=== PATIENT | male | born 1960 | race Caucasian/White ===

== ENCOUNTER 2017-12-06 08:33 | Outpatient (CLI) | payer MEDICARE, SELFPAY ==
[2017-12-06 13:23] LABS: Anion Gap 7.8 mmol/L (3-11); BUN 20 mg/dL (7-18); CO2 29.2 mmol/L (21.0-32.0); CREATININE 1.07 mg/dL (0.70-1.30); Calcium 8.8 mg/dL (8.5-10.1); Chloride 106 mmol/L (98-107); Cholesterol 152 mg/dL (50-200); Glucose 139 mg/dL (70-100); HDL Cholesterol 31 mg/dL (40-60); LDL CHOLESTEROL 110 mg/dL (<100); Potassium 4.4 mmol/L (3.5-5.1); Sodium 143 mmol/L (136-145); Triglyceride 74 mg/dL (30-150)
== END 2017-12-06 08:53 ==
PROVIDERS: PCP Family Medicine; Visit Provider Family Medicine
DX: E78.5 Hyperlipidemia, unspecified (principal); J45.909 Unspecified asthma, uncomplicated
CPT/HCPCS: 36415; 80048; 80061; 83721

== ENCOUNTER 2018-04-30 09:52 | Emergency (ER) | payer MEDICARE, SELFPAY ==
[2018-04-30 09:57] VITALS: BP 141/96; PULSE 88; RESP 20; TEMP 36.9; O2SAT 96
--- NOTE | 2018-04-30 10:03 | DI.RAD_ITS ---
SYMPTOMS/DIAGNOSIS: COUGH, RIGHT BASE RHONCHI CHEST X-RAY, TWO VIEWS: Comparison is 09/23/11. The heart size and pulmonary vasculature are within normal limits. The lungs are clear. The lungs are slightly hyperinflated. This may be due to underlying COPD or reactive airway disease. No focal infiltrates, effusions or pneumothoraces are identified. Degenerative changes are seen in the spine. IMPRESSION: Stable mild hyperinflation of the lungs. This may be due to deep inspiratory effort, COPD or mild reactive airway disease.
--- NOTE | 2018-04-30 10:06 | ED.GENADUL_ITS ---
Discharge Plan Disposition Patient Disposition: HOME Discharge Details Chief Complaint: RespSymp Clinical Impression: Pneumonitis Primary Care Provider: Shay Pimentel ED Provider: Sudheer Singh Home Meds and New Rx's Prescriptions: New cefdinir 300 mg capsule 300 mg PO Q12H 10 Days Qty: 20 RF: 0 Continued Flovent HFA 110 mcg/actuation HFA aerosol inhaler 2 puff IH BID Qty: 12 RF: 5 oxycodone-acetaminophen 5-325 mg tablet 1 tab PO TID PRN MDD 3 tabs PRN (Reason: pain) Qty: 90 RF: 0 NARCOTIC CONTRACT RF: 0 albuterol sulfate 2.5 mg /3 mL (0.083 %) solution for nebulization 2.5 mg IH QID PRN (Reason: shortness of breath or wheezing) Qty: 90 RF: 4 triamcinolone acetonide 0.1 % cream 1 applic TP BID Qty: 80 RF: 2 Discharge Instructions Additional Instructions: Take medications as prescribed. Continue your regular medications. Return for high fever, worsening difficulty with cough, or any other acute concerns. Follow-up with regular doctor if not improving in 3-5 days time Medical Decision Making 57-year-old male former smoker with a history of mild COPD presents with nearly 20 days of upper respiratory robin illness with cough, congestion, production of sputum. Subjective fever and chills at home for which he seeks evaluation today. He is afebrile with unremarkable vital signs and normal oxygenation. His exam does reveal right base rhonchi. Referred for chest x-ray which does not reveal large focal infiltrate. Will treat for developing pneumonitis with a course of antibiotics. He is stable for outpatient management and will follow up with primary care if not improving on this course of treatment. HPI General Mode of arrival: ambulatory . Date/Time Provider Initiated Documentation: 04/30/18 09:53 . Limitations to Documentation: no limitations . Information obtained by: patient . History of Present Illness 57 year old M presents to the emergency department with the chief complaint of Cough, congestion, fever, described as moderate, Quality is described as aching, and is localized to the chest and right. Patient reports no radiation. Patient started experiencing this day(s) and it has been constant. No relieving factors improve symptom(s), No exacerbating factors reported . Patient notes cough, fever/chills and malaise. Patient did receive the following treatments prior to arrival, none Related Data Home Medications Medication Instructions Recorded Confirmed Narcotic Contract 06/28/12 02/23/18 fluticasone 110 mcg/actuation HFA 2 puff IH BID #12 gm 11/23/17 02/23/18 aerosol inhaler albuterol sulfate 2.5 mg/3 mL 2.5 mg IH QID PRN #90 ml 02/13/18 02/23/18 (0.083 %) solution for nebulization oxycodone-acetaminophen 5 mg-325 1 tab PO TID PRN PRN #90 tab MDD 3 02/23/18 02/23/18 mg tablet tabs triamcinolone acetonide 0.1 % 1 applic TP BID #80 gm 04/11/18 topical cream cefdinir 300 mg PO Q12H 10 Days #20 cap 04/30/18 Previous Rx's Medication Instructions Recorded fluticasone 110 mcg/actuation HFA 2 puff IH BID #12 gm 11/23/17 aerosol inhaler albuterol sulfate 2.5 mg/3 mL 2.5 mg IH QID PRN #90 ml 02/13/18 (0.083 %) solution for nebulization oxycodone-acetaminophen 5 mg-325 1 tab PO TID PRN PRN #90 tab MDD 3 02/23/18 mg tablet tabs triamcinolone acetonide 0.1 % 1 applic TP BID #80 gm 04/11/18 topical cream cefdinir 300 mg PO Q12H 10 Days #20 cap 04/30/18 Allergies Allergy/AdvReac Type Severity Reaction Status Date / Time No Known Allergies Allergy Unverified 04/30/18 09:58 General Stated Complaint: RespSymp ALIS: 3 Review of Systems Review of Systems 8 systems reviewed and otherwise neg PFSH Family History Mother Asthma Father No problems noted. Sister No problems noted. Sister No problems noted. Sister No problems noted. Son Diabetes Son No problems noted. Social History household members: other details: 10 highest education level completed: high school graduate current occupational status: disabled pets and animals: Yes pets and animals: cat(s) frequency: daily duration: < 15 minutes/day Smoking and Tabacco status: Former Tobacco Use Pasive smoking exposure: No second hand exposure: No alcohol intake: never substance use type: does not use lara/confucianism: Cheondoism special lara needs: No Exam Narrative Exam Narrative: GEN: awake, alert, oriented 3. Pleasant, well groomed, interactive. HEAD: Normocephalic, atraumatic ENT: Mucous membranes moist, oropharynx unremarkable, External ear exam unremarkable EYES: PERRL, EOMI NECK: Full ROM, no FERNANDA, no menigismus CHEST/RESP: Nontender, right base rhonchi CARDIOVASCULAR: RRR, no murmur, rub carter. 2+ Rad pulse bilateral ABDOMEN: Soft, nontender, no mass. +Bowel sounds EXT: Full ROM, no edema, no rash Neuro: Grossly normal neurologic exam, conversant, interactive. Psych: Speech fluent, thoughts congruent, affect normal Course Vital Signs Temperature 36.9 C 04/30/18 09:57 Pulse 88 04/30/18 09:57 Respiratory Rate 20 04/30/18 09:57 Blood Pressure 141/96 H 04/30/18 09:57 Pulse Oximetry 96 04/30/18 09:57 Temperature 36.9 C 04/30/18 09:57 Temperature Source Temporal Artery Scan 04/30/18 09:57 Pulse 88 04/30/18 09:57 Respiratory Rate 20 04/30/18 09:57 Respiratory Effort Non-Labored 04/30/18 09:57 Blood Pressure 141/96 H 04/30/18 09:57 Pulse Oximetry 96 04/30/18 09:57 Pain Level 9 04/30/18 09:57
--- NOTE | 2018-04-30 10:34 | DI.VRAD_ITS ---
EXAM: XR Chest, 2 Views EXAM DATE/TIME: 04/30/2018 10:22 AM CLINICAL HISTORY: 57 years old, male; Signs and symptoms; Other: Cough, r base rhonchi TECHNIQUE: XR of the chest, 2 views. COMPARISON: 2 view CXR 07/10/2015 10:29 AM FINDINGS: Lungs: Stable hyperaerated lungs consistent with deep inspiratory effort vs reactive airway disease vs mild COPD . Pleural space: Unremarkable. No pleural effusion. No pneumothorax. Heart/Mediastinum: Unremarkable. No cardiomegaly. Bones/joints: Mild thoracic spondylosis. IMPRESSION: Stable hyperaerated lungs consistent with deep inspiratory effort vs reactive airway disease vs mild COPD . Dictated and Authenticated by: Zaheer Niño MD. Ordering:CHELO Willard MD
== END 2018-04-30 10:33 | disposition home or self-care (01) ==
PROVIDERS: Emergency Provider Emergency Medicine; PCP Family Medicine
DX: R09.81 Nasal congestion (principal); J44.0 Chronic obstructive pulmonary disease with (acute) lower respiratory infection; J18.9 Pneumonia, unspecified organism; Z87.891 Personal history of nicotine dependence
CPT/HCPCS: 99283; 71046

== ENCOUNTER 2019-08-14 17:30 | Emergency (ER) | payer MEDICARE, SELFPAY ==
[2019-08-14] VITALS (20 sets, daily range): BP systolic 133–179; BP diastolic 75–99; PULSE 82–98; RESP 8–20; TEMP 37.1–38.9; O2SAT 93–100
--- NOTE | 2019-08-14 17:48 | ED.GENADUL_ITS ---
Discharge Plan Disposition Patient Disposition: HOME Condition: Improving Discharge Details Chief Complaint: SOB Clinical Impression: Acute bronchitis, Fever Primary Care Provider: Shay Pimentel ED Provider: Kelly Aburto Home Meds and New Rx's Prescriptions: New prednisone 20 mg tablet See Rx Instructions .ROUTE .COMPLEX Qty: 12 RF: 0 benzonatate [Tessalon Perles] 100 mg capsule 100 mg PO TID PRN (Reason: cough) Qty: 14 RF: 0 levofloxacin [Levaquin] 750 mg tablet 750 mg PO DAILY 5 Days Qty: 5 RF: 0 Continued albuterol sulfate 2.5 mg /3 mL (0.083 %) solution for nebulization 2.5 mg IH QID PRN (Reason: shortness of breath or wheezing) Qty: 90 RF: 4 metformin 500 mg tablet 500 mg PO BID Qty: 180 RF: 4 Flovent HFA 110 mcg/actuation HFA aerosol inhaler 2 puff IH BID Qty: 12 RF: 5 oxycodone-acetaminophen 5-325 mg tablet 1 tab PO TID PRN MDD 3 tabs PRN (Reason: pain) Qty: 90 RF: 0 NARCOTIC CONTRACT RF: 0 triamcinolone acetonide 0.1 % cream 1 applic TP BID Qty: 80 RF: 2 albuterol sulfate [Ventolin HFA] 90 mcg/actuation HFA aerosol inhaler 2 puff IH Q6H PRN (Reason: shortness of breath or wheezing) Qty: 18 RF: 4 lorazepam 0.5 mg tablet 0.5 mg PO QHS PRN (Reason: insomnia) Qty: 30 RF: 2 Combivent Respimat 20-100 mcg/actuation mist 1 puff IH Q6H Qty: 4 RF: 3 Discharge Instructions Instructions: Fever in Adults (ED), Acute Bronchitis (ED) Additional Instructions: Drink plenty of fluids and get plenty of rest. Alternate tylenol and motrin as needed and directed for pain or fever. Take antibiotics and steroids until finished. Keep off medication as needed and directed. Follow-up with your primary care doctor appointment scheduled for this . If you develop any worsening or new concerning symptoms such as persistent fevers, worsening shortness of breath, return immediately to the emergency department. Stand Alone Forms: PENDING COVID-19 TESTING Discharge Data Discharge Date/Time-TO BE ENTERED AT DEPARTURE: 08/14/19 20:00 Discharge Physician: Kelly Aburto Medical Decision Making 1734 -- 58-year-old male with a history of borderline diabetes, asthma, chronic back pain on Percocet presents for productive cough, fever, body aches, shortness of breath since this morning. Temp 102. Normal respiratory rate. Oxygen saturation mid to high 90s. Scattered wheezing throughout. Differential diagnosis includes acute asthma exacerbation with bronchitis, acute bronchitis, pneumonia, coronavirus. Will check screening labs, CT chest, and give nebs, steroids, IV Tylenol, fluids and reassess. 1914 --labs and imaging reviewed. Normal white blood cell count, lactate, LDH, ferritin. D-dimer elevated 2961. CRP mildly elevated to 1.38. Troponin negative. Procalcitonin 0.4. CT chest negative for pneumonia or PE. Patient reassessed -states he feels much better. He is now afebrile. Lung sounds improved throughout. He still has scattered wheezing offered another neb treatment but declines. Normal respiratory rate and oxygen saturation 97% on room air. As patient has sputum in the setting of fever, will treat with antibiotics. Will treat for acute bronchitis with steroids and Tessalon Perles. Patient has an appointment with his primary care doctor in 2 days. He was advised to return here immediately with any worsening fevers, shortness of breath. Medical Records Medical records reviewed: Yes I reviewed the patient's medical records. Imaging Data Radiologic Study: Radiologist's impression: CT Angiography Chest With Contrast Exam date and time: 08/14/2019 6:38 PM Age: 58 years old Clinical indication: Other: Cough, fever, SOB, R/O pneumonia/pe TECHNIQUE: Imaging protocol: Computed tomographic angiography of the chest with intravenous contrast. 3D rendering: MIP and/or 3D reconstructed images were created by the technologist. Radiation optimization: All CT scans at this facility use at least one of these dose optimization techniques: automated exposure control; mA and/or kV adjustment per patient size (includes targeted exams where dose is matched to clinical indication); or iterative reconstruction. Contrast material: OMNIPAQUE 350; Contrast volume: 85 ml; Contrast route: IV; COMPARISON: CR XR CHEST 2V PA LATERAL 04/30/2018 10:11 AM FINDINGS: Pulmonary arteries: No evidence of pulmonary embolism. Aorta: No aortic aneurysm. No aortic dissection. Lungs: No focal consolidation. Mild mosaic attenuation of the lungs and subpleural reticular densities. Pleural space: No pleural effusion. No pneumothorax. Heart: No cardiomegaly. No pericardial effusion. Lymph nodes: No pathologically enlarged lymph nodes. Liver: There is fatty infiltration of the liver. Bones/joints: No acute fracture. No destructive bone lesion. Soft tissues: Unremarkable. Other findings: There is respiratory motion artifact. IMPRESSION: 1. No evidence of pulmonary embolism. 2. No focal consolidation. Lab Data Lab results reviewed: Yes I reviewed the patient's lab results. Labs: 08/14/19 17:55 Blood Blood Culture - Pending 08/14/19 17:50 Blood Blood Culture - Pending Laboratory Tests Range/Units 08/14/19 08/14/19 08/14/19 17:50 17:50 17:50 WBC (4.4-10.8) k/cumm 5.31 RBC (4.50-6.00) m/cumm 4.63 Hgb (13.5-17.5) g/dL 15.0 Hct (40.0-50.0) % 42.7 MCV (80-95) fL 92.2 MCH (27.0-33.0) pg 32.4 MCHC (32.0-36.0) g/dL 35.1 RDW (11.8-14.1) % 12.6 Plt Count (130-400) x1000/uL 190 MPV (8.0-11.0) fL 10.5 Immature Gran % % 0.2 Neutrophils % 74.0 Lymphocytes % 12.6 Monocytes % 11.5 Eosinophils % 1.3 Basophils % 0.4 Absolute Neutrophils (1.2-6.7) k/cumm 3.93 Absolute Lymphocytes (1.2-3.4) k/cumm 0.67 L Absolute Monocytes (0.11-0.7) k/cumm 0.61 Absolute Eosinophils (0.0-0.7) k/cumm 0.07 Absolute Basophils (0.0-0.2) k/cumm 0.02 PT (9.3-11.0) sec INR (0.9-1.1) APTT (21.0-31.4) sec D-Dimer (<500) ng/mlFEU Sodium (136-145) mmol/L 135 L Potassium (3.5-5.1) mmol/L 3.8 Chloride (98-107) mmol/L 100 Carbon Dioxide (21.0-32.0) mmol/L 25.6 Anion Gap (3-11) mmol/L 9.4 BUN (7-18) mg/dL 15 Creatinine (0.70-1.30) mg/dL 1.11 Estimated GFR/1.73 m2 (mL/min/1.73m2) >= 60.00 Glucose (74-106) mg/dL 143 H Lactate (0.6-1.4) mmol/L 1.0 Calcium (8.5-10.1) mg/dL 9.0 Magnesium (1.8-2.4) mg/dL 2.1 Ferritin (26-388) ng/mL Total Bilirubin (0.2-1.0) mg/dL 0.5 AST (15-37) U/L 35 ALT (16-63) U/L 75 H Alkaline Phosphatase (46-116) U/L 94 Lactate Dehydrogenase (85-227) U/L Troponin I (<0.06) ng/Ml < 0.05 C-Reactive Protein (0.0-0.3) mg/dL Total Protein (6.4-8.2) g/dL 7.8 Albumin (3.4-5.0) g/dL 4.0 Procalcitonin ng/mL COVID-19 PCR (Negative) Nasopharyn COVID-19 PCR Ref Test Perform Site Range/Units 08/14/19 08/14/19 08/14/19 17:50 17:50 17:50 WBC (4.4-10.8) k/cumm RBC (4.50-6.00) m/cumm Hgb (13.5-17.5) g/dL Hct (40.0-50.0) % MCV (80-95) fL MCH (27.0-33.0) pg MCHC (32.0-36.0) g/dL RDW (11.8-14.1) % Plt Count (130-400) x1000/uL MPV (8.0-11.0) fL Immature Gran % % Neutrophils % Lymphocytes % Monocytes % Eosinophils % Basophils % Absolute Neutrophils (1.2-6.7) k/cumm Absolute Lymphocytes (1.2-3.4) k/cumm Absolute Monocytes (0.11-0.7) k/cumm Absolute Eosinophils (0.0-0.7) k/cumm Absolute Basophils (0.0-0.2) k/cumm PT (9.3-11.0) sec 10.6 INR (0.9-1.1) 1.1 APTT (21.0-31.4) sec 27.4 D-Dimer (<500) ng/mlFEU Sodium (136-145) mmol/L Potassium (3.5-5.1) mmol/L Chloride (98-107) mmol/L Carbon Dioxide (21.0-32.0) mmol/L Anion Gap (3-11) mmol/L BUN (7-18) mg/dL Creatinine (0.70-1.30) mg/dL Estimated GFR/1.73 m2 (mL/min/1.73m2) Glucose (74-106) mg/dL Lactate (0.6-1.4) mmol/L Calcium (8.5-10.1) mg/dL Magnesium (1.8-2.4) mg/dL Ferritin (26-388) ng/mL 335 Total Bilirubin (0.2-1.0) mg/dL AST (15-37) U/L ALT (16-63) U/L Alkaline Phosphatase (46-116) U/L Lactate Dehydrogenase (85-227) U/L 223 Troponin I (<0.06) ng/Ml C-Reactive Protein (0.0-0.3) mg/dL 1.38 H Total Protein (6.4-8.2) g/dL Albumin (3.4-5.0) g/dL Procalcitonin ng/mL 0.4 COVID-19 PCR (Negative) Nasopharyn COVID-19 PCR Ref Test Perform Site Range/Units 08/14/19 08/14/19 17:50 17:55 WBC (4.4-10.8) k/cumm RBC (4.50-6.00) m/cumm Hgb (13.5-17.5) g/dL Hct (40.0-50.0) % MCV (80-95) fL MCH (27.0-33.0) pg MCHC (32.0-36.0) g/dL RDW (11.8-14.1) % Plt Count (130-400) x1000/uL MPV (8.0-11.0) fL Immature Gran % % Neutrophils % Lymphocytes % Monocytes % Eosinophils % Basophils % Absolute Neutrophils (1.2-6.7) k/cumm Absolute Lymphocytes (1.2-3.4) k/cumm Absolute Monocytes (0.11-0.7) k/cumm Absolute Eosinophils (0.0-0.7) k/cumm Absolute Basophils (0.0-0.2) k/cumm PT (9.3-11.0) sec INR (0.9-1.1) APTT (21.0-31.4) sec D-Dimer (<500) ng/mlFEU 961 H Sodium (136-145) mmol/L Potassium (3.5-5.1) mmol/L Chloride (98-107) mmol/L Carbon Dioxide (21.0-32.0) mmol/L Anion Gap (3-11) mmol/L BUN (7-18) mg/dL Creatinine (0.70-1.30) mg/dL Estimated GFR/1.73 m2 (mL/min/1.73m2) Glucose (74-106) mg/dL Lactate (0.6-1.4) mmol/L Calcium (8.5-10.1) mg/dL Magnesium (1.8-2.4) mg/dL Ferritin (26-388) ng/mL Total Bilirubin (0.2-1.0) mg/dL AST (15-37) U/L ALT (16-63) U/L Alkaline Phosphatase (46-116) U/L Lactate Dehydrogenase (85-227) U/L Troponin I (<0.06) ng/Ml C-Reactive Protein (0.0-0.3) mg/dL Total Protein (6.4-8.2) g/dL Albumin (3.4-5.0) g/dL Procalcitonin ng/mL COVID-19 PCR (Negative) Negative Nasopharyn COVID-19 PCR Not Applicable Ref Test Perform Site [place] [facility] lab ECG Data Attestation: I personally reviewed and interpreted this ECG (s) as follows: Interpretation: Rate of 96, sinus, no acute ST elevation or depression. [place] 162. QTc 409. QRS 94. HPI General Mode of arrival: ambulatory . Date/Time Provider Initiated Documentation: 08/14/19 17:36 . Limitations to Documentation: no limitations . Information obtained by: patient . HPI Narrative: Patient is a 58-year-old male with a history of borderline diabetes, asthma, chronic back pain on Percocet for the past 10 years who presents with headache, body aches, fever, chills, productive cough and shortness of breath that started since awaking this morning. Fever at home today 101. He last took Tylenol at noon today. He states he felt fine before he went to bed last night. He states he worked outside all day yesterday. He states his cough is productive with cintron sputum. He denies any ear pain, runny nose, sore throat, chest pain, abdominal pain, nausea, vomiting, diarrhea, urinary symptoms or neck pain. He denies any recent travel, recent exposure to coronavirus, recent Covid testing or recent hospital admissions. Related Data Home Medications Medication Instructions Recorded Confirmed Narcotic Contract 06/28/12 05/17/19 triamcinolone acetonide 0.1 % 1 applic TP BID #80 gm 04/11/18 08/14/19 topical cream albuterol sulfate 2.5 mg IH QID PRN #90 ml 05/01/18 08/14/19 fluticasone propionate 110 2 puff IH BID #12 gm 05/25/18 08/14/19 mcg/actuation HFA aerosol inhaler metformin 500 mg tablet 500 mg PO BID #180 tab 02/16/19 08/14/19 albuterol sulfate 90 mcg/actuation 2 puff IH Q6H PRN #18 gm 05/10/19 08/14/19 aerosol inhaler lorazepam 0.5 mg tablet 0.5 mg PO QHS PRN #30 tab 05/14/19 08/14/19 oxycodone-acetaminophen 5 mg-325 1 tab PO TID PRN PRN #90 tab MDD 3 05/17/19 08/14/19 mg tablet tabs ipratropium 20 mcg-albuterol 100 1 puff IH Q6H #4 gm 07/02/19 08/14/19 mcg/actuation mist for inhalation benzonatate [Tessalon Perles] 100 mg PO TID PRN #14 cap 08/14/19 levofloxacin [Levaquin] 750 mg PO DAILY 5 Days #5 tab 08/14/19 prednisone See Rx Instructions .ROUTE 08/14/19 .COMPLEX #12 tab Previous Rx's Medication Instructions Recorded triamcinolone acetonide 0.1 % 1 applic TP BID #80 gm 04/11/18 topical cream albuterol sulfate 2.5 mg IH QID PRN #90 ml 05/01/18 fluticasone propionate 110 2 puff IH BID #12 gm 05/25/18 mcg/actuation HFA aerosol inhaler metformin 500 mg tablet 500 mg PO BID #180 tab 02/16/19 albuterol sulfate 90 mcg/actuation 2 puff IH Q6H PRN #18 gm 05/10/19 aerosol inhaler lorazepam 0.5 mg tablet 0.5 mg PO QHS PRN #30 tab 05/14/19 oxycodone-acetaminophen 5 mg-325 1 tab PO TID PRN PRN #90 tab MDD 3 05/17/19 mg tablet tabs ipratropium 20 mcg-albuterol 100 1 puff IH Q6H #4 gm 07/02/19 mcg/actuation mist for inhalation benzonatate [Tessalon Perles] 100 mg PO TID PRN #14 cap 08/14/19 levofloxacin [Levaquin] 750 mg PO DAILY 5 Days #5 tab 08/14/19 prednisone See Rx Instructions .ROUTE 08/14/19 .COMPLEX #12 tab Allergies Allergy/AdvReac Type Severity Reaction Status Date / Time No Known Allergies Allergy Unverified 08/14/19 17:39 General Stated Complaint: SOB ALIS: 2 Review of Systems All systems reviewed & are unremarkable except as noted in HPI and below Constitutional Constitutional: Reports as per HPI, Denies chills and Denies fever(s) Eyes Eyes: Denies blurry vision ENT Ears, Nose, Mouth, and Throat: Denies dizziness, Denies sore throat and Denies throat swelling Cardiovascular Cardiovascular: Denies chest pain and Denies dyspnea Respiratory Respiratory: Denies cough and Denies dyspnea Gastrointestinal Gastrointestinal: Denies abdominal pain, Denies diarrhea and Denies vomiting Genitourinary Genitourinary: Denies hematuria and Denies dysuria Musculoskeletal Musculoskeletal: Denies back pain and Denies numbness Integumentary/Breasts Skin/Breast: Denies lesions and Denies rash Neurologic Neurologic: Denies dizziness, Denies localized weakness and Denies numbness Allergic/Immunologic Allergic/Immunologic: Denies throat swelling [facility] Surgical History (Updated 09/13/18 @ 17:00 by Shay Pimentel MD) History of knee surgery (Resolved) History of spinal surgery (Resolved) Family History (Updated 02/19/19 @ 10:30 by Nain Gilmore) Mother , age 76 Asthma Father , age 68 Alcohol abuse Sister No problems noted. Sister No problems noted. Son Diabetes Son No problems noted. Social History (Updated 02/19/19 @ 10:15 by Nain Gilmore) Smoking/Tobacco Use Status: Former Tobacco Use Second Hand Exposure: No Alcohol Intake: current Alcohol Intake frequency: a few times a week Alcohol type: beer Drug use: Never Substance use type: does not use Caregiver/Support person: No Household members: spouse and other Details: 10 Housing: house Communication Needs: None Do you need help understanding health information?: Never Pets and animals: Yes Pets and animals: cat(s) Sexually active: Yes Do you think of yourself as: straight/heterosexual Current gender identity: male What is your relationship status?: How often do you talk on the phone with friends or family?: three or more times per week How often do you get together with friends or relatives?: twice per week How often do you attend yazidi or gnosticism services?: 1-3 times per year Do you belong to any clubs or organized social groups?: no Panel score (0-1 are the most socially isolated patients): 2 What type of physical activity do you participate in: walking Duration: > 90 minutes/day Frequency: daily [employer] Special jewell needs: No Seatbelt use: always Helmet use: No Drive intox or ride w/intox transit bus driver: No Do you feel safe at home: Yes Do you feel safe in your relationship?: Yes Exam Const General: cooperative and uncomfortable Orientation: alert, awake and oriented x3 HENMT Head: normal to inspection Ears: hearing grossly normal bilaterally, external ears normal and TM's normal bilaterally Face and sinus: normal facial exam Mouth: oral mucosae normal Throat: posterior oropharynx normal Eyes General: appearance normal, both eyes and all related structures EOM: EOM intact bilaterally Neck Neck: normal visual inspection and No submandibular swelling Lymphatic: no lymphadenopathy noted Chest Chest: normal inspection of the chest and no tenderness Resp Effort & Inspection: normal respiratory effort and able to speak in complete sentences Auscultation: wheezes scattered wheezes Cardio Rate: regular rate Rhythm: regular rhythm GI Inspection: normal to inspection Palpation: soft, not firm, not rigid and nontender Auscultation: normal bowel sounds Skin General skin exam: other (face flushed) Neuro General: patient alert, patient awake and patient oriented x3 Cognition: normal cognition Speech: speech normal Motor: muscle tone normal throughout Sensory Exam: no sensory deficits noted Extrem General: normal to inspection, full ROM, capillary refill normal, no calf tenderness bilaterally and no edema Psych Appearance: grossly normal Mental Status: mental status grossly normal Speech and Movement: speech and movement normal Affect: normal affect Course Vital Signs Vital signs: Vital Signs Temperature 102.0 F H 08/14/19 17:34 Pulse 97 H 08/14/19 17:34 Respiratory Rate 16 08/14/19 17:34 Blood Pressure 179/99 H 08/14/19 17:34 Pulse Oximetry 96 08/14/19 17:34 Temperature 102.0 F H 08/14/19 17:34 Temperature Source Temporal Artery Scan 08/14/19 17:34 Pulse 97 H 08/14/19 17:34 Respiratory Rate 16 08/14/19 17:34 Respiratory Effort 08/14/19 17:38 Blood Pressure 179/99 H 08/14/19 17:34 Blood Pressure Position Supine 08/14/19 17:34 Pulse Oximetry 96 08/14/19 17:34 Oxygen Delivery Method Room Air 08/14/19 17:34 Oxygen Flow Rate 0 08/14/19 17:34 Pain Level 7 08/14/19 17:34 Lab/Test Results Lab/Test Results: 08/14/19 17:45 Blood Blood Culture - Pending 08/14/19 17:45 Blood Blood Culture - Pending
[2019-08-14] MEDS: Normal Saline 1,000 ML 1000 ML IV (18:00)
--- NOTE | 2019-08-14 18:00 | DI.CT_ITS ---
EXAM: CT CHEST PE CTA CLINICAL HISTORY: cough, fever, sob, r/o pneumonia/PE. TECHNIQUE: Imaging Protocol: Axial CT angiography was performed with multi-slice acquisition and mu lti-planar and/or 3D reconstructions. CONTRAST MATERIAL: Intravenous: Omnipaque 350 Contrast volume:85 ml COMPARISON: CR XR CHEST 2V PA LATERAL from 04/30/2018 FINDINGS: The evaluation of the lungs is limited by respiratory motion and poor pulmonary inflation. Pulmonary Arteries: No evidence of filling defect to suggest pulmonary emboli. Tracheobronchial tree: Patent where visualized. Mediastinum and Becca: No dominant adenopathy or fluid collection. Pulmonary parenchyma: Respiratory motion and dependent changes. No consolidation or dominant measura ble mass. . Pleura: No effusion or pneumothorax. Heart: The heart is not dilated. No coronary artery calcifications are seen. Aorta: Thoracic aorta non-dilated. Upper abdomen: Severe hepatic steatosis.. Bones: Disc osteophytes in the thoracic spine. IMPRESSION: No evidence of pulmonary embolism. No focal area of consolidation or effusion. Evaluation of the lisa gs is limited due to respiratory motion. RADIATION DOSE DELIVERED: 510.63mGy.cm Total DLP DATA REPOSITORY: All CT scans at this facility are submitted to the National Radiology Data Registry (NRDR) Dose Index Registry (DIR) with the [employer] (A[employer]). RADIATION OPTIMIZATION: All CT scans at this facility use at least one of these dose optimization te chniques: automated exposure control; mA and/or kV adjustment per patient size (includes targeted exa ms where dose is matched to clinical indication); or iterative reconstruction.
[2019-08-14 18:01] LABS: Abs Immature Grans 0.01 k/cumm (0.0-0.09); Absolute Basophil Count 0.02 k/cumm (0.0-0.2); Absolute Eosinophil Count 0.07 k/cumm (0.0-0.7); Absolute Lymphocyte Count 0.67 k/cumm (1.2-3.4); Absolute Monocyte Count 0.61 k/cumm (0.11-0.7); Absolute Neutrophil Count 3.93 k/cumm (1.2-6.7); Basophils % 0.4; Eosinophils % 1.3; HCT 42.7 % (40.0-50.0); Immature Grans % 0.2 %; Lymphocytes % 12.6; Mean Corp. HGB Concentration 35.1 g/dL (32.0-36.0); Mean Corpuscular Hemoglobin 32.4 pg (27.0-33.0); Mean Corpuscular Volume 92.2 fL (80-95); Mean Platelet Volume 10.5 fL (8.0-11.0); Monocytes % 11.5; Platelet Count 190 x1000/uL (130-400); RBC 4.63 m/cumm (4.50-6.00); RBC Distribution Width 12.6 % (11.8-14.1); White Blood Cell Count 5.31 k/cumm (4.4-10.8)
[2019-08-14] MEDS: ACETAMINOPHEN 1,000 MG/100 ML BTL 400 MG IVPB (18:12)
[2019-08-14] MEDS: methylPREDNISolone SUCC 125 MG VIAL IVP (18:13)
[2019-08-14 18:16] LABS: INR 1.1 (0.9-1.1); PTT Activated 27.4 sec (21.0-31.4); Prothrombin Time 10.6 sec (9.3-11.0)
[2019-08-14 18:19] LABS: ALT 75 U/L (16-63); AST 35 U/L (15-37); Alkaline Phosphatase 94 U/L (46-116); Anion Gap 9.4 mmol/L (3-11); BUN 15 mg/dL (7-18); Bilirubin, Total 0.5 mg/dL (0.2-1.0); CO2 25.6 mmol/L (21.0-32.0); CREATININE 1.11 mg/dL (0.70-1.30); Chloride 100 mmol/L (98-107); Glucose 143 mg/dL (74-106); Magnesium 2.1 mg/dL (1.8-2.4); Potassium 3.8 mmol/L (3.5-5.1); Sodium 135 mmol/L (136-145); Total Protein 7.8 g/dL (6.4-8.2); Troponin I < 0.05 ng/Ml (<0.06)
[2019-08-14 18:28] LABS: C-Reactive Protein 1.38 mg/dL (0.0-0.3); LDH 223 U/L (85-227)
[2019-08-14] MEDS: Omnipaque 350 MG/ML 100 ML BTL IV (18:38)
[2019-08-14 18:41] LABS: D-Dimer 961 ng/mlFEU (<500)
[2019-08-14] MEDS: Normal Saline - Diluent 50 ML VIAL IV (18:46)
[2019-08-14] MEDS: Albuterol/Ipratropium 3 ML UPD VIAL UPD (18:47)
[2019-08-14 18:48] LABS: Procalcitonin 0.4 ng/mL
[2019-08-14 18:53] LABS: Ferritin 335 ng/mL (26-388)
--- NOTE | 2019-08-14 19:08 | DI.VRAD_ITS ---
PROCEDURE INFORMATION: Exam: CT Angiography Chest With Contrast Exam date and time: 08/14/2019 6:38 PM Age: 58 years old Clinical indication: Other: Cough, fever, SOB, R/O pneumonia/pe TECHNIQUE: Imaging protocol: Computed tomographic angiography of the chest with intravenous contrast. 3D rendering: MIP and/or 3D reconstructed images were created by the technologist. Radiation optimization: All CT scans at this facility use at least one of these dose optimization techniques: automated exposure control; mA and/or kV adjustment per patient size (includes targeted exams where dose is matched to clinical indication); or iterative reconstruction. Contrast material: OMNIPAQUE 350; Contrast volume: 85 ml; Contrast route: IV; COMPARISON: CR XR CHEST 2V PA LATERAL 04/30/2018 10:11 AM FINDINGS: Pulmonary arteries: No evidence of pulmonary embolism. Aorta: No aortic aneurysm. No aortic dissection. Lungs: No focal consolidation. Mild mosaic attenuation of the lungs and subpleural reticular densities. Pleural space: No pleural effusion. No pneumothorax. Heart: No cardiomegaly. No pericardial effusion. Lymph nodes: No pathologically enlarged lymph nodes. Liver: There is fatty infiltration of the liver. Bones/joints: No acute fracture. No destructive bone lesion. Soft tissues: Unremarkable. Other findings: There is respiratory motion artifact. IMPRESSION: 1. No evidence of pulmonary embolism. 2. No focal consolidation. Dictated and Authenticated by: Kailash Khan MD. Ordering:SIMI Mendoza MD
[2019-08-15 01:34] LABS: COVID-19 RT-PCR UVMMC Result Negative (Negative)
--- NOTE | 2019-08-16 10:17 | NUR.NOTE ---
patient's Alicia aware of patients negative results and will notify Edward. Alicia is listed as next of kin. Nursing Note:
== END 2019-08-14 20:00 | disposition home or self-care (01) ==
PROVIDERS: Emergency Provider Physician Assistant; PCP Family Medicine
DX: J44.0 Chronic obstructive pulmonary disease with (acute) lower respiratory infection (principal); J20.9 Acute bronchitis, unspecified; J45.909 Unspecified asthma, uncomplicated; R79.1 Abnormal coagulation profile; R73.03 Prediabetes; Z87.891 Personal history of nicotine dependence
CPT/HCPCS: 36415; 71275; 80053; 84145; 87040; 93005; 94640; 96361; 96365; 96375; 99285; U0003; 82728; 83605; 83615; 83735; 84484; 85025; 85379; 85610; 85730; 86140; 93010; J0131; J2930; J3490; J7620

== ENCOUNTER 2019-10-21 17:38 | Emergency (ER) | payer MEDICARE, SELFPAY ==
[2019-10-21] VITALS (8 sets, daily range): BP systolic 119–153; BP diastolic 59–122; PULSE 0–88; RESP 4–20; TEMP 36.4; O2SAT 95–100
--- NOTE | 2019-10-21 17:30 | RT.EKG_ITS ---
APPROVED REPORT Exam: Resting ECG Patient Location: E HR:72 bpm ECG Measurements Heart Rate 72 AXIS [place] 171 P 54 QRSd 97 QRS -10 QT 387 T 36 QTc 425 <Conclusion> Sinus rhythm, rate 72, no st elev. [id number]
--- NOTE | 2019-10-21 17:45 | DI.CT_ITS ---
EXAM: CT HEAD WO CLINICAL HISTORY: dizziness, nausea TECHNIQUE: COMPARISON: No exams were available for comparison FINDINGS: Chest cranial CT was performed. Note is made of mucoperiosteal thickening right maxillary antrum and ethmoid air cells consistent with mild chronic sinusitis, mild sphenoid sinus mucoperiosteal thicken ing also. Orbital and temporal bone structures appear intact. Mastoid air cells are clear. There is no evidence of acute intracranial hemorrhage, mass effect, or midline shift. IMPRESSION: No evidence of acute intracranial injury.
--- NOTE | 2019-10-21 17:53 | ED.GENADUL_ITS ---
Discharge Plan Disposition Patient Disposition: HOME Condition: Improving Discharge Details Chief Complaint: Dizzy/Sync Clinical Impression: Sinusitis, Hyperglycemia Primary Care Provider: Shay Pimentel ED Provider: Sudheer Singh Home Meds and New Rx's Prescriptions: New amoxicillin-pot clavulanate 875-125 mg tablet 1 tab PO BID 10 Days Qty: 20 RF: 0 Continued albuterol sulfate 2.5 mg /3 mL (0.083 %) solution for nebulization 2.5 mg IH QID PRN (Reason: shortness of breath or wheezing) Qty: 90 RF: 4 metformin 500 mg tablet 500 mg PO BID Qty: 180 RF: 4 Flovent HFA 110 mcg/actuation HFA aerosol inhaler 2 puff IH BID Qty: 12 RF: 5 oxycodone-acetaminophen 5-325 mg tablet 1 tab PO TID PRN MDD 3 tabs PRN (Reason: pain) Qty: 90 RF: 0 (DME) blood-glucose meter [Auth0uch Ultra2 Meter] Kit See Rx Instructions .ROUTE .MEDSUPPLY Qty: 1 RF: 0 (DME) blood sugar diagnostic [WinkTouch Ultra Blue Test Strip] Strip See Rx Instructions .ROUTE .MEDSUPPLY Qty: 100 RF: 4 (DME) lancets [WinkTouch Delica Lancets] 33 gauge misc See Rx Instructions .ROUTE DAILY Qty: 100 RF: 4 NARCOTIC CONTRACT RF: 0 triamcinolone acetonide 0.1 % cream 1 applic TP BID Qty: 80 RF: 2 lorazepam 0.5 mg tablet 0.5 mg PO QHS PRN (Reason: insomnia) Qty: 30 RF: 2 albuterol sulfate [Ventolin HFA] 90 mcg/actuation HFA aerosol inhaler 2 puff IH Q6H PRN (Reason: shortness of breath or wheezing) Qty: 18 RF: 4 Combivent Respimat 20-100 mcg/actuation mist 1 puff IH Q6H Qty: 4 RF: 3 prednisone 20 mg tablet See Rx Instructions .ROUTE .COMPLEX Qty: 12 RF: 0 benzonatate [Tessalon Perles] 100 mg capsule 100 mg PO TID PRN (Reason: cough) Qty: 14 RF: 0 Discharge Instructions Instructions: Diabetic Hyperglycemia (ED), Sinusitis (ED) Additional Instructions: Take Augmentin 2 times daily until finished. I recommend you take an [id number] probiotic or live culture yogurt once daily in between the doses of antibiotic to promote good gut health. We will arrange an outpatient follow-up for you with Dr. Pimentel. Please continue your medications including metformin. Return to the ER for any acute concerns. Medical Decision Making Pleasant 59-year-old male who reports increased stress since the of his a week or so ago. States he has been diagnosed with diabetes but had not been taking his metformin until today. Today he had noticed nausea, lightheadedness, his son came and checked his blood sugar found to be 374. Patient did take his metformin today. States he was nauseated with 2 episodes of emesis. He denies any abdominal pain. Does states he has a mild headache but has not fallen or struck his head. He is afebrile with a blood pressure 139/53. He is alert, pleasant, no acute distress with a reassuring exam. Did have some discrete wheezing and was improved with a DuoNeb. Laboratories reveal a white count of 9, hematocrit 45, platelets 214. Chemistries reassuring. Glucose noted at 359. No anion gap. CT scan reveals mild paranasal sinus disease but no acute intracranial abnormality. Consistent with a mild sinusitis, mild hyperglycemia. We will treat him with a course of antibiotics and have him restart his metformin which she has already done today. We will ask care management to arrange an outpatient follow-up for the patient for recheck. He is stable and improved. He is appropriate to discharge to home at this time. Lab Data Lab results reviewed: Yes I reviewed the patient's lab results. Labs: Laboratory Results - last 24 hr 10/21/19 10/21/19 17:55 17:55 WBC 9.27 RBC 4.77 Hgb 15.1 Hct 45.3 MCV 95.0 MCH 31.7 MCHC 33.3 RDW 12.5 Plt Count 214 MPV 10.6 Immature Gran % 0.3 Neutrophils % 78.9 Lymphocytes % 9.3 Monocytes % 8.0 Eosinophils % 3.0 Basophils % 0.5 Absolute Neutrophils 7.31 H Absolute Lymphocytes 0.86 L Absolute Monocytes 0.74 Absolute Eosinophils 0.28 Absolute Basophils 0.05 Sodium 136 Potassium 4.1 Chloride 99 Carbon Dioxide 28.4 Anion Gap 8.6 BUN 12 Creatinine 1.09 Estimated GFR/1.73 m2 >= 60.00 Glucose 359 H Calcium 9.1 Magnesium 2.0 Total Bilirubin 0.7 AST 33 ALT 66 H Alkaline Phosphatase 102 Troponin I < 0.05 Total Protein 7.6 Albumin 4.2 HPI General Mode of arrival: ambulatory . Date/Time Provider Initiated Documentation: 10/21/19 17:39 . Limitations to Documentation: no limitations . Information obtained by: patient . History of Present Illness 59 year old M presents to the emergency department with the chief complaint of Blood glucose 374, nauseated at home, mild dizziness., described as mild, Quality is described as dull, and is localized to the head. Patient reports no radiation. Patient started experiencing this hour(s) and it has been constant. No relieving factors improve symptom(s), No exacerbating factors reported . Patient notes headaches and nausea/vomiting; denies chest pain, cough, fever/chills, syncope and weakness. Patient did receive the following treatments prior to arrival, none Related Data Home Medications Medication Instructions Recorded Confirmed Narcotic Contract 06/28/12 05/17/19 triamcinolone acetonide 0.1 % 1 applic TP BID #80 gm 04/11/18 08/14/19 topical cream albuterol sulfate 2.5 mg IH QID PRN #90 ml 05/01/18 08/14/19 fluticasone propionate 110 2 puff IH BID #12 gm 05/25/18 08/14/19 mcg/actuation HFA aerosol inhaler metformin 500 mg tablet 500 mg PO BID #180 tab 02/16/19 08/14/19 benzonatate [Tessalon Perles] 100 mg PO TID PRN #14 cap 08/14/19 prednisone See Rx Instructions .ROUTE 08/14/19 .COMPLEX #12 tab blood sugar diagnostic #100 each 08/16/19 08/16/19 blood-glucose meter #1 each 08/16/19 08/16/19 lancets 33 gauge #100 each 08/16/19 08/16/19 oxycodone-acetaminophen 5 mg-325 1 tab PO TID PRN PRN #90 tab MDD 3 08/16/19 08/16/19 mg tablet tabs lorazepam 0.5 mg tablet 0.5 mg PO QHS PRN #30 tab 08/24/19 albuterol sulfate 90 mcg/actuation 2 puff IH Q6H PRN #18 gm 09/18/19 aerosol inhaler ipratropium 20 mcg-albuterol 100 1 puff IH Q6H #4 gm 10/16/19 mcg/actuation mist for inhalation amoxicillin-pot clavulanate 1 tab PO BID 10 Days #20 tab 10/21/19 Previous Rx's Medication Instructions Recorded triamcinolone acetonide 0.1 % 1 applic TP BID #80 gm 04/11/18 topical cream albuterol sulfate 2.5 mg IH QID PRN #90 ml 05/01/18 fluticasone propionate 110 2 puff IH BID #12 gm 05/25/18 mcg/actuation HFA aerosol inhaler metformin 500 mg tablet 500 mg PO BID #180 tab 02/16/19 benzonatate [Tessalon Perles] 100 mg PO TID PRN #14 cap 08/14/19 prednisone See Rx Instructions .ROUTE 08/14/19 .COMPLEX #12 tab blood sugar diagnostic #100 each 08/16/19 blood-glucose meter #1 each 08/16/19 lancets 33 gauge #100 each 08/16/19 oxycodone-acetaminophen 5 mg-325 1 tab PO TID PRN PRN #90 tab MDD 3 08/16/19 mg tablet tabs lorazepam 0.5 mg tablet 0.5 mg PO QHS PRN #30 tab 08/24/19 albuterol sulfate 90 mcg/actuation 2 puff IH Q6H PRN #18 gm 09/18/19 aerosol inhaler ipratropium 20 mcg-albuterol 100 1 puff IH Q6H #4 gm 10/16/19 mcg/actuation mist for inhalation amoxicillin-pot clavulanate 1 tab PO BID 10 Days #20 tab 10/21/19 Allergies Allergy/AdvReac Type Severity Reaction Status Date / Time No Known Allergies Allergy Unverified 10/21/19 17:47 General Stated Complaint: Dizzy/Sync ALIS: 2 Review of Systems Narrative: His this week. Increase stress. Has not been taking metformin but did take it today. No cough or shortness of breath. He has chronic back pain that is unchanged. 8 systems reviewed and otherwise negative [facility] Medical History Acute bronchitis (Inactive) Surgical History History of knee surgery (Resolved) History of spinal surgery (Resolved) Family History Mother , age 76 Asthma Father , age 68 Alcohol abuse Sister No problems noted. Sister No problems noted. Son Diabetes Son No problems noted. Social History Smoking/Tobacco Use Status: Former Tobacco Use Second Hand Exposure: No Alcohol Intake: current Alcohol Intake frequency: a few times a week Alcohol type: beer Drug use: Never Substance use type: does not use Caregiver/Support person: No Household members: spouse and other Details: 10 Housing: house Communication Needs: None Do you need help understanding health information?: Never Pets and animals: Yes Pets and animals: cat(s) Sexually active: Yes Do you think of yourself as: straight/heterosexual Current gender identity: male What is your relationship status?: How often do you talk on the phone with friends or family?: three or more times per week How often do you get together with friends or relatives?: twice per week How often do you attend adventism or anabaptism services?: 1-3 times per year Do you belong to any clubs or organized social groups?: no Panel score (0-1 are the most socially isolated patients): 2 What type of physical activity do you participate in: walking Duration: > 90 minutes/day Frequency: daily Jewell/Restorationism: Alevism Special jewell needs: No Seatbelt use: always Helmet use: No Drive intox or ride w/intox driver license technician: No Do you feel safe at home: Yes Do you feel safe in your relationship?: Yes Exam Narrative Exam Narrative: GEN: awake, alert, oriented 3. Pleasant, well groomed, interactive. HEAD: Normocephalic, atraumatic ENT: Mucous membranes moist, oropharynx unremarkable, External ear exam unremarkable EYES: PERRL, EOMI NECK: Full ROM, no FERNANDA, no menigismus CHEST/RESP: Nontender, few scattered, scant expiratory wheeze bilaterally CARDIOVASCULAR: RRR, no murmur, rub carter. 2+ Rad pulse bilateral ABDOMEN: Soft, nontender, no mass. +Bowel sounds EXT: Full ROM, no edema, no rash Neuro: Grossly normal neurologic exam, conversant, interactive. Psych: Speech fluent, thoughts congruent, affect normal Course Vital Signs Vital signs: Vital Signs Temperature 36.4 C L 10/21/19 17:43 Pulse 77 10/21/19 17:43 Respiratory Rate 20 10/21/19 17:43 Blood Pressure 139/83 10/21/19 17:43 Pulse Oximetry 98 10/21/19 17:43 Temperature 36.4 C L 10/21/19 17:43 Temperature Source Skin 10/21/19 17:43 Pulse 77 10/21/19 17:43 Respiratory Rate 20 10/21/19 17:43 Blood Pressure 139/83 10/21/19 17:43 Blood Pressure Position Sitting 10/21/19 17:43 Pulse Oximetry 98 10/21/19 17:43 Pain Level 6 10/21/19 17:43
[2019-10-21] MEDS: Ondansetron 4 MG/2 ML VIAL IVP (18:01)
[2019-10-21] MEDS: Normal Saline 1,000 ML 1000 ML IV (18:01)
[2019-10-21] MEDS: oxyCODONE 5 mg/Acetaminophen 325 mg TAB 1 TAB PO (18:02)
[2019-10-21 18:06] LABS: Abs Immature Grans 0.03 10^3/uL (0.0-0.06); Absolute Basophil Count 0.05 10^3/uL (0.0-0.2); Absolute Eosinophil Count 0.28 10^3/uL (0.0-0.7); Absolute Lymphocyte Count 0.86 10^3/uL (1.2-3.4); Absolute Monocyte Count 0.74 10^3/uL (0.1-0.8); Absolute Neutrophil Count 7.31 10^3/uL (1.2-6.7); Basophils % 0.5; HCT 45.3 % (40.0-50.0); HGB 15.1 g/dL (13.5-17.5); Immature Grans % 0.3; Lymphocytes % 9.3; MCH 31.7 pg (27.0-33.0); MCHC 33.3 % (32.0-36.0); MPV 10.6 fL (8.0-11.0); Neutrophils % 78.9; Platelet Count 214 10^3/uL (130-400); RBC 4.77 10^6/uL (4.36-5.78); RDW 12.5 % (11.8-14.1); RDW-SD 43.8 fL; WBC 9.27 10^3/uL (4.4-10.8)
[2019-10-21 18:20] LABS: ALT 66 U/L (16-63); AST 33 U/L (15-37); Albumin 4.2 g/dL (3.4-5.0); Alkaline Phosphatase 102 U/L (46-116); Anion Gap 8.6 mmol/L (3-11); BUN 12 mg/dL (7-18); Bilirubin, Total 0.7 mg/dL (0.2-1.0); CO2 28.4 mmol/L (21.0-32.0); CREATININE 1.09 mg/dL (0.70-1.30); Calcium 9.1 mg/dL (8.5-10.1); Chloride 99 mmol/L (98-107); Glucose 359 mg/dL (74-106); Potassium 4.1 mmol/L (3.5-5.1); Sodium 136 mmol/L (136-145); Total Protein 7.6 g/dL (6.4-8.2)
[2019-10-21 18:21] LABS: Troponin I < 0.05 ng/mL (<0.06)
[2019-10-21] MEDS: Albuterol/Ipratropium 3 ML UPD VIAL UPD (19:00)
--- NOTE | 2019-10-21 19:17 | DI.VRAD_ITS ---
PROCEDURE INFORMATION: Exam: CT Head Without Contrast Exam date and time: 10/21/2019 6:43 PM Age: 59 years old Clinical indication: Other: Dizziness, nausea TECHNIQUE: Imaging protocol: Computed tomography of the head without contrast. Radiation optimization: All CT scans at this facility use at least one of these dose optimization techniques: automated exposure control; mA and/or kV adjustment per patient size (includes targeted exams where dose is matched to clinical indication); or iterative reconstruction. COMPARISON: No relevant prior studies available. FINDINGS: Brain: Normal. No hemorrhage. Unremarkable white matter. No mass effect. Ventricles: Normal. No ventriculomegaly. Bones/joints: Unremarkable. No acute fracture. Sinuses: Mild mucosal thickening is seen within the bilateral maxillary sinuses and sphenoid sinuses. Moderate mucosal thickening within the ethmoid sinuses. Mastoid air cells: Visualized mastoid air cells are well aerated. Soft tissues: Unremarkable. IMPRESSION: 1. No acute intracranial abnormality. 2. Mild paranasal sinus disease. Dictated and Authenticated by: Maricarmen Pace MD. Ordering:CHELO Willard MD
--- NOTE | 2019-10-21 19:35 | NUR.NOTE ---
Nursing Note: referal sent to dr grewal 10/21/19
[2019-10-21] MEDS: Amox. 875/Clav. 125, 2 TABS/BTL 1 TAB PO (19:44)
== END 2019-10-21 19:45 | disposition home or self-care (01) ==
LOC: ER 20:04
PROVIDERS: Emergency Provider Emergency Medicine; PCP Family Medicine
DX: E11.65 Type 2 diabetes mellitus with hyperglycemia (principal); J01.90 Acute sinusitis, unspecified; R11.2 Nausea with vomiting, unspecified; R51 Headache; Z63.4 Disappearance and death of family member
CPT/HCPCS: 36415; 36416; 80053; 82962; 93005; 94640; 96361; 96374; 96375; 99285; 70450; 83735; 84484; 85025; 93010; 99284; J2405; J7620

== ENCOUNTER 2020-03-04 02:54 | Outpatient (CLI) | payer MEDICARE, SELFPAY ==
[2020-03-04 11:11] LABS: Calculated LDL 102 mg/dL (<100); Cholesterol 159 mg/dL (<200); HDL Cholesterol 33 mg/dL (40-60); Triglyceride 122 mg/dL (<150)
[2020-03-04 11:28] LABS: Hemoglobin A1C 6.5 % (<5.7)
== END 2020-03-04 03:14 ==
PROVIDERS: PCP Family Medicine; Visit Provider Family Medicine
DX: E11.9 Type 2 diabetes mellitus without complications (principal)
CPT/HCPCS: 36415; 80061; 83036

== ENCOUNTER 2020-07-10 14:44 | Outpatient (CLI) | payer OTHER, MEDICAID, SELFPAY ==
--- NOTE | 2020-07-10 14:30 | DI.RAD_ITS ---
EXAM: XR KNEE LT 3V AP,LAT,HUMPHREY CLINICAL HISTORY: left knee pain. TECHNIQUE: 2D digital imaging was performed. COMPARISON: X-rays 09/16/2009 FINDINGS: There has been further progression of degenerative change. There is now bocr-wh-rotn apposition in t he medial compartment. Also significant progression in the patellofemoral compartment. Also promine nt bony excrescence posteriorly as seen on the lateral view has increased in size. Milder degenerati ve changes noted in the lateral compartment IMPRESSION: Significant advancement of osteoarthritic degenerative changes when compared to August 2009. DATA REPOSITORY: RADIATION DOSE DELIVERED:
== END 2020-07-10 14:45 | disposition home or self-care (01) ==
LOC: DIORS 14:44
PROVIDERS: PCP Family Medicine; Referring Provider Family Medicine; Visit Provider Student in an Organized Health Care Education/Training Program
DX: M25.561 Pain in right knee (principal); M25.562 Pain in left knee; M17.12 Unilateral primary osteoarthritis, left knee
CPT/HCPCS: 20610; 73562; 99213; J7325

== ENCOUNTER 2021-09-29 18:58 | Outpatient (CLI) | payer OTHER, MEDICAID, SELFPAY ==
--- NOTE | 2021-09-29 | DI.RAD_ITS ---
Exam(s) XR KNEE LT 3V AP,LAT,HUMPHREY EXAM: XR KNEE LT 3V AP,LAT,HUMPHREY CLINICAL HISTORY: LT KNEE PAIN, M25.662, ? OA, [id number]. TECHNIQUE: 2D digital imaging was performed of the left knee. Three images were obtained. AP, late ral and PA tunnel views were obtained. COMPARISON: CR XR KNEE LT 3V AP,LAT,HUMPHREY from 07/10/2020 FINDINGS: BONES: No acute fracture is present. No bony destructive lesion is seen. JOINTS: There is marked narrowing of the medial femoral tibial joint space with a [id number] appear ance. There is also narrowing of the patellofemoral joint. Periarticular spurring is seen involving all 3 joint compartments. There is a tiny suprapatellar joint effusion. SOFT TISSUE: Normal. IMPRESSION: No significant change in the marked degenerative changes of the left knee. DATA REPOSITORY: RADIATION DOSE DELIVERED:
--- NOTE | 2021-09-29 | DI.RAD_ITS ---
Exam(s) XR KNEE RT 3V AP,LAT,HUMPHREY EXAM: XR KNEE RT 3V AP,LAT,HUMPHREY CLINICAL HISTORY: LT KNEE PAIN, SUSPECTED OA IN LT KNEE, M25.562, [id number]. TECHNIQUE: 2D digital imaging was performed of the right knee. Three views obtained. AP, lateral an d PA tunnel views were obtained. COMPARISON: No priors for comparison FINDINGS: BONES: No acute fracture is present. No bony destructive lesion is seen. JOINTS: There is moderate narrowing and spurring of the medial femoral tibial joint space. No signif icant joint effusion is seen. Chondrocalcinosis in the femoral tibial joint is present. SOFT TISSUE: Normal. IMPRESSION: Moderate degenerative changes of the right knee. DATA REPOSITORY: RADIATION DOSE DELIVERED:
== END 2021-09-29 19:18 ==
LOC: DI 19:01
PROVIDERS: PCP Family Medicine; Visit Provider Internal Medicine
DX: M25.562 Pain in left knee (principal)
CPT/HCPCS: 73562

== ENCOUNTER 2022-11-06 15:10 | Emergency (ER) | payer OTHER, MEDICAID, SELFPAY ==
[2022-11-06] VITALS (20 sets, daily range): BP systolic 129–149; BP diastolic 73–88; PULSE 81–92; RESP 9–18; TEMP 36.5; O2SAT 91–99
--- NOTE | 2022-11-06 15:00 | RT.EKG_ITS ---
APPROVED REPORT Exam: Resting ECG Reason for Exam: sob Patient Location: E HR:92 bpm ECG Measurements Heart Rate 92 AXIS [place] 171 P 43 QRSd 94 QRS -40 QT 353 T 68 QTc 436 Conclusion Sinus rhythm...normal P axis, V-rate 60- 99 Left anterior fascicular block...axis(240,-40), init forces inf Anteroseptal infarct, old...Q >40mS, V1-V2 Left [place] There are no significant changes compared to prior EKG performed on 10/21/2019 at 17:45.
--- NOTE | 2022-11-06 15:28 | ED.GENADUL_ITS ---
Discharge Plan Disposition Patient Disposition: Home Condition: Improving Discharge Details Clinical Impression: COPD exacerbation Primary Care Provider: Julieta Willis ED Provider: Balbir Robledo Meds and New Rx's Prescriptions: New ipratropium-albuterol 0.5 mg-3 mg(2.5 mg base)/3 mL solution for nebulization 3 ml inhalation QID Qty: 90 0RF prednisone 10 mg tablet See Taper PO DAILY Qty: 42 0RF Taper: Prednisone 10mg taper 40 mg Daily for 4 Days and 0 Hour 30 mg Daily for 4 Days and 0 Hour 20 mg Daily for 4 Days and 0 Hour 10 mg Daily for 4 Days and 0 Hour 5 mg Daily for 4 Days and 0 Hour Continued fluticasone propionate [Flovent HFA] 110 mcg/actuation HFA aerosol inhaler 2 puff IH BID Qty: 12 5RF oxycodone-acetaminophen 5-325 mg tablet 1 tab PO BID MDD 15mg PRN (Reason: pain) Qty: 60 0RF (DME) OneTouch Ultra Blue Test Strip Strip See Rx Instructions .ROUTE .MEDSUPPLY Qty: 100 4RF Rx Instructions: One Daily (DME) lancets [OneTouch Delica Lancets] 33 gauge misc See Rx Instructions .ROUTE DAILY Qty: 100 4RF Rx Instructions: One each daily metformin 1,000 mg tablet 1,000 mg PO BID Qty: 180 4RF NARCOTIC CONTRACT (DME) blood-glucose meter [OneTouch Verio Meter] Misc See Rx Instructions .ROUTE .MEDSUPPLY Qty: 1 0RF Rx Instructions: Daily albuterol sulfate [Ventolin HFA] 90 mcg/actuation HFA aerosol inhaler 2 puff IH Q6H PRN (Reason: shortness of breath or wheezing) Qty: 18 4RF albuterol sulfate 2.5 mg /3 mL (0.083 %) solution for nebulization 2.5 mg IH QID PRN (Reason: shortness of breath or wheezing) Qty: 60 4RF Discharge Instructions Instructions: COPD (Chronic Obstructive Pulmonary Disease) (ED) Additional Instructions: You were seen in the ED for difficulty breathing likely related to a COPD exacerbation. Because of the length of time you have been having difficulty I will place you on an extended prednisone taper. I have also provided prescription for DuoNeb which you should take 4 times a day as well as albuterol neb which you can use as needed for rescue. Please follow-up at the [facility] Tuesday as planned. Take it easy over the next couple of days to give this medication a chance to work. Return to ED for increasing shortness of breath, chest pain, sy ncope, fever, other concerns. Medical Decision Making Patient presenting to ED with worsening dyspnea and now some orthopnea over the course of 1 to 2 months. Denies any fever, chest pain. No acute changes more awake gradual worsening. His EKG is unchanged from previous. His lungs have wheezing and rhonchi but no rails. Does have a history of COPD but no cardiac history that he is aware of. Seems more related to his COPD despite the complaint of orthopnea. Does not seem to be failure related. Has a little bit of a prolonged expiratory phase. We will give DuoNeb, albuterol, Solu-Medrol and obtain labs including VBG and chest x-ray. 16: 30 - Patient reports some improvement in breathing after nebs. His laboratory studies reveal normal kidney function, normal PCO2, normal white count and hemoglobin. Chest x-ray per my read without acute cardiopulmonary disease. He has normal-sized heart. Lung exam improved with much less wheezing, still some rhonchi and wheeze in the bases. We will plan 2 more albuterol and reevaluate. Complaining of worsening chronic back pain due to position on stretcher. Takes oxycodone 5 mg at home, has not taken since this morning. We will give a dose here. 17:15 - Patient much improved after 2 more albuterol nebs. Wheezing is minimal at this point. Patient states that he feels much better. We will plan discharge on prednisone, DuoNeb, refill albuterol neb solution. Follow-up at the [facility] on Tuesday as planned. Return precautions provided. Imaging Data Radiologic Study: Attestation: I personally reviewed and interpreted this imaging study as follows: Imaging: X-Ray My impression: 2 view chest x-ray without evidence of infiltrate, mass, edema. Lab Data Lab results reviewed: Yes I reviewed the patient's lab results. Lab results narrative: No CO2 retention, normal white count and hemoglobin, normal kidney function ECG Data Attestation: I personally reviewed and interpreted this ECG (s) as follows: Prior ECG tracings: available for review Interpretation: see EKG HPI General Mode of arrival: ambulatory . Date/Time Provider Initiated Documentation: 11/06/22 15:18 . Limitations to Documentation: no limitations . Information obtained by: patient . HPI Narrative: Patient presenting to ED with complaint of shortness of breath and cough worsening over the last month to 2 months. Patient does report a history of COPD. He has both inhalers and nebulizer machine at home. Over the summer he has had difficulty breathing and cough. Over the last week this has been worse. He is unable to sleep at night and has difficulty lying flat. He denies any fever. His cough is mostly nonproductive but does sound wet. Denies having chest pain or pressure. Denies any cardiac history. Denies any leg swelling or leg pain. He has an appointment to be seen at the [facility] on Tuesday. He has not been on steroids in quite some time. He has been trying to deal with this as best he can at home but presents to ED this afternoon with increased difficulty breathing. Related Data Home Medications Medication Instructions Recorded Confirmed Narcotic Contract 06/28/12 03/04/20 fluticasone propionate 110 2 puff inhalation BID #12 grams 05/25/18 11/06/22 mcg/actuation HFA aerosol inhaler (Flovent HFA) blood sugar diagnostic (OneTouch #100 ea 08/16/19 11/06/22 Ultra Blue Test Strip) lancets 33 gauge (OneTouch Delica #100 ea 08/16/19 11/06/22 Lancets) blood-glucose meter ([employer] #1 ea 11/01/19 11/06/22 Verio Meter) metformin 1,000 mg tablet 1,000 mg PO BID #180 tabs 11/02/19 11/06/22 oxycodone-acetaminophen 5 mg-325 1 tab PO BID PRN pain #60 tabs 05/22/20 11/06/22 mg tablet albuterol sulfate 90 mcg/actuation 2 puff inhalation Q6H PRN 07/16/20 11/06/22 aerosol inhaler (Ventolin HFA) shortness of breath or wheezing #18 grams albuterol sulfate 2.5 mg/3 mL 2.5 mg (3 mL) inhalation QID PRN 11/06/22 (0.083 %) solution for nebulization shortness of breath or wheezing #60 mL ipratropium 0.5 mg-albuterol 3 mg 3 ml inhalation QID #90 mL 11/06/22 (2.5 mg base)/3 mL nebulization soln prednisone 10 mg tablet See Taper PO DAILY #42 tabs 11/06/22 Previous Rx's Medication Instructions Recorded fluticasone propionate 110 2 puff inhalation BID #12 grams 05/25/18 mcg/actuation HFA aerosol inhaler (Flovent HFA) blood sugar diagnostic ([employer] #100 ea 08/16/19 Ultra Blue Test Strip) lancets 33 gauge (OneTouch Delica #100 ea 08/16/19 Lancets) blood-glucose meter ([employer] #1 ea 11/01/19 Verio Meter) metformin 1,000 mg tablet 1,000 mg PO BID #180 tabs 11/02/19 oxycodone-acetaminophen 5 mg-325 1 tab PO BID PRN pain #60 tabs 05/22/20 mg tablet albuterol sulfate 90 mcg/actuation 2 puff inhalation Q6H PRN 07/16/20 aerosol inhaler (Ventolin HFA) shortness of breath or wheezing #18 grams albuterol sulfate 2.5 mg/3 mL 2.5 mg (3 mL) inhalation QID PRN 11/06/22 (0.083 %) solution for nebulization shortness of breath or wheezing #60 mL ipratropium 0.5 mg-albuterol 3 mg 3 ml inhalation QID #90 mL 11/06/22 (2.5 mg base)/3 mL nebulization soln prednisone 10 mg tablet See Taper PO DAILY #42 tabs 11/06/22 Allergies Allergy/AdvReac Type Severity Reaction Status Date / Time duloxetine AdvReac Intermediate dizziness Verified 07/10/20 14:13 General Stated Complaint: SOB ALIS: 3 Review of Systems Narrative: per HPI PFSH All Active Problems (Updated 11/06/22 @ 17:21 by Balbir Robledo MD) COPD exacerbation (Acute) Acute bronchitis (Acute) Osteoarthritis of left knee (Acute) Most recent Synvisc injection: 07/10/2020 Low HDL (under 40) (Acute) Depression (Chronic) Grief (Chronic) Chronic pain (Chronic) Neck pain (Chronic) Patient is to have severe neck pain associated with headache. He would like a referral to the chiropractor. 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 Sister No problems noted. Son Diabetes Son No problems noted. Social History Smoking/Tobacco Use Status: Former Tobacco Use Second Hand Exposure: No Smoking risk assessment performed?: Yes Alcohol Intake: current Alcohol Intake frequency: a few times a week Alcohol type: beer Drug use: Never Substance use type: does not use Caregiver/Support person: No Household members: spouse and other Details: 10 Housing: house Communication Needs: None Do you need help understanding health information?: Never Pets and animals: Yes Pets and animals: cat(s) Sexually active: Yes Do you think of yourself as: straight/heterosexual Current gender identity: male What is your relationship status?: How often do you talk on the phone with friends or family?: three or more times per week How often do you get together with friends or relatives?: twice per week How often do you attend judaism or amish services?: 1-3 times per year Do you belong to any clubs or organized social groups?: no Panel score (0-1 are the most socially isolated patients): 2 What type of physical activity do you participate in: walking Duration: > 90 minutes/day Frequency: daily Jewell/Mormonism: Islam Special jewell needs: No Seatbelt use: always Helmet use: No Drive intox or ride w/intox service parts driver: No Do you feel safe at home: Yes Do you feel safe in your relationship?: Yes Exam Narrative Exam Narrative: Const: WDWN male in NAD. HEENT: NC/AT. Normal facial exam. Eyes: Normal conjunctiva and sclera. Neck: Supple. Trachea midline. Lungs: Normal respiratory effort. Somewhat prolonged phase. Diffuse wheezing throughout. Rhonchi at bases. Cor: RRR without murmur/gallop. Good radial pulses. GI: Soft. NT/ND. No guarding or rebound. Neuro: A+O x 3. Normal speech, mentation, gait. Cranial nerves II - XII grossly intact. No gross motor or sensory deficit. Ext: No C/C/E. Skin: Warm and dry without rash. Course Vital Signs Vital signs: Vital Signs Temperature 97.7 F 11/06/22 15:15 Pulse 90 11/06/22 15:15 Respiratory Rate 18 11/06/22 15:15 Pulse Oximetry 97 11/06/22 15:15 Temperature 97.7 F 11/06/22 15:15 Temperature Source Oral 11/06/22 15:15 Pulse 90 11/06/22 15:15 Respiratory Rate 17 11/06/22 15:24 Respiratory Effort Normal 11/06/22 15:24 Respiratory Depth Normal 11/06/22 15:24 Respiratory Pattern Normal 11/06/22 15:24 Blood Pressure Position Sitting 11/06/22 15:15 Pulse Oximetry 97 11/06/22 15:15 Oxygen Delivery Method Room Air 11/06/22 15:15 Oxygen Flow Rate 0 11/06/22 15:15
--- NOTE | 2022-11-06 15:30 | DI.RAD_ITS ---
Exam(s) XR CHEST 2V PA LATERAL EXAM: XR CHEST 2V PA LATERAL CLINICAL HISTORY: cough, SOB. TECHNIQUE: 2D digital imaging was performed. COMPARISON: CR XR CHEST 2V PA LATERAL from 04/30/2018 FINDINGS: 2 views: Heart size is normal. The mediastinum is not widened. Left lung is clear. Very subtle nodular infiltrate noted on the right side either in the right upper lobe or superior segment right lower lobe. This subtle finding measures approximately 1 cm x 1 cm. It is projected over posterior aspect of the right 6 rib. IMPRESSION: Subtle 1 cm nodular infiltrate in the right lung as described above. DATA REPOSITORY: RADIATION DOSE DELIVERED:
[2022-11-06] MEDS: Albuterol 2.5 MG/3 ML INH SOLN VIAL UPD ×3 (15:47→17:21)
[2022-11-06] MEDS: Albuterol/Ipratropium 3 ML UPD VIAL UPD (15:47)
[2022-11-06] MEDS: methylPREDNISolone SUCC 125 MG VIAL IVP (15:47)
[2022-11-06 15:55] LABS: BE (Venous) 2 mmol/L (-2-3); HCO3 (Venous) 26 mmol/L (23-28); O2 Sat (Venous) 80 %; TCO2 (Venous) 23 mmol/L (24-29); pCO2 (Venous) 43 mmHg (41-51); pH (Venous) 7.39 (7.31-7.41); pO2 (Venous) 45 mmHg
[2022-11-06 15:57] LABS: Abs Immature Grans 0.03 10^3/uL (0.0-0.06); Absolute Basophil Count 0.06 10^3/uL (0.0-0.2); Absolute Eosinophil Count 0.48 10^3/uL (0.0-0.7); Absolute Lymphocyte Count 1.11 10^3/uL (1.2-3.4); Absolute Monocyte Count 0.66 10^3/uL (0.1-0.8); Absolute Neutrophil Count 6.68 10^3/uL (1.2-6.7); Basophils % 0.7; Eosinophils % 5.3; HCT 49.3 % (40.0-50.0); Immature Grans % 0.3; Lymphocytes % 12.3; MCH 33.1 pg (27.0-33.0); MCHC 34.5 % (32.0-36.0); MCV 96 fL (80-95); MPV 10.5 fL (8.0-11.0); Monocytes % 7.3; Neutrophils % 74.1; Platelet Count 242 10^3/uL (130-400); RBC 5.14 10^6/uL (4.36-5.78); RDW 12.8 % (11.8-14.1); RDW-SD 45.7 fL; WBC 9.02 10^3/uL (4.4-10.8)
[2022-11-06 16:10] LABS: Anion Gap 10.1 mmol/L (3-11); BUN 15 mg/dL (7-18); CO2 26.9 mmol/L (21.0-32.0); CREATININE 1.1 mg/dL (0.70-1.30); Calcium 9.5 mg/dL (8.5-10.1); Chloride 104 mmol/L (98-107); Estimated GFR 74.96 (mL/min/1.73m2); Glucose 200 mg/dL (74-106); Potassium 4.1 mmol/L (3.5-5.1); Sodium 141 mmol/L (136-145)
--- NOTE | 2022-11-06 16:21 | DI.VRAD_ITS ---
PROCEDURE INFORMATION: Exam: XR Chest Exam date and time: 11/06/2022 4:12 PM Age: 62 years old Clinical indication: Cough and shortness of breath TECHNIQUE: Imaging protocol: Radiologic exam of the chest. Views: 2 views. COMPARISON: CR XR CHEST 2V PA LATERAL 12/20/2018 10:11 FINDINGS: Lungs: Unremarkable. No consolidation. Pleural spaces: Unremarkable. No pleural effusion. No pneumothorax. Heart/Mediastinum: Unremarkable. No cardiomegaly. Bones/joints: Multilevel degenerative changes of the spine. IMPRESSION: No acute cardiopulmonary findings. Dictated and Authenticated by: Bren Connors MD. Ordering:KATHI Mcgregor MD
[2022-11-06] MEDS: oxyCODONE 5 MG TAB PO (16:40)
--- NOTE | 2022-11-07 13:02 | NUR.NOTE ---
Nursing Note: [facility] called asking about the albuterol and whether it should be neb or inhaler. I read this sentence from Dr. Robledo's report to the pharmacy I have also provided prescription for DuoNeb which you should take 4 times a day as well as albuterol neb which you can use as needed for rescue. They will fill it as neb per this documentation.
== END 2022-11-06 17:38 | disposition home or self-care (01) ==
PROVIDERS: Emergency Provider Emergency Medicine; PCP Family Medicine
DX: J44.1 Chronic obstructive pulmonary disease with (acute) exacerbation (principal); I44.4 Left anterior fascicular block; E11.9 Type 2 diabetes mellitus without complications; I10 Essential (primary) hypertension; Z79.84 Long term (current) use of oral hypoglycemic drugs; Z87.891 Personal history of nicotine dependence; Z79.899 Other long term (current) drug therapy
CPT/HCPCS: 80048; 82805; 93005; 94640; 99285; 71046; 85025; 93010; 99284; J2930; J7613; J7620

== ENCOUNTER 2023-10-26 11:32 | Outpatient (CLI) | payer OTHER, SELFPAY ==
--- NOTE | 2023-10-26 09:30 | DI.RAD_ITS ---
Exam(s) XR SHOULDER LT COMPLETE 2+V EXAM: XR SHOULDER LT COMPLETE 2+V CLINICAL HISTORY: LEFT SHOULDER PAIN. TECHNIQUE: 2D digital imaging was performed. COMPARISON: No exams were available for comparison FINDINGS: Two views No evidence of acute fracture nor dislocation glenohumeral joint. For, there is advanced narrowing o f the glenohumeral joint space and a small huertas-type osteophyte on the inferior articular surface of the humeral head is noted. Subacromial space is not diminished and there are no soft tissue calcifi cations within the subacromial space. There are mild degenerative changes in the AC joint. Clavicle appears intact. Coracoid process is intact. No os acromiale. No significant osseous lesions. IMPRESSION: Significant degenerative changes in the glenohumeral joint. No diminution of the subacromial space. DATA REPOSITORY: RADIATION DOSE DELIVERED:
== END 2023-10-26 11:33 | disposition home or self-care (01) ==
LOC: DIORS 11:32
PROVIDERS: PCP Family Medicine; Referring Provider Family Medicine; Visit Provider Student in an Organized Health Care Education/Training Program
DX: M25.512 Pain in left shoulder (principal); M19.012 Primary osteoarthritis, left shoulder
CPT/HCPCS: 73030